=== PATIENT | female | born 1980 | race African-American/Black ===

== ENCOUNTER 2016-12-11 14:36 | Emergency (ER) | payer BC ==
[2016-12-11 18:39] LABS: BASOPHIL % 0.4 % (0-2); PLATELET COUNT 363 x10^3mcL (130-400); RED CELL DISTRIBUTION WIDTH 14.1 % (11.5-14.5)
[2016-12-11 19:03] VITALS: BP 119/79
[2016-12-11 19:08] LABS: CALCIUM 9.3 mg/dL (8.5-10.1); CARBON DIOXIDE 25.1 mmol/L (21-32); CHLORIDE SERUM 104 mmol/L (98-107); CREATININE SERUM 0.8 mg/dL (0.6-1.0); GFR1 > 60 mL/min; GLUCOSE SERUM 98 mg/dL (74-106); POTASSIUM SERUM 3.5 mmol/L (3.5-5.1); SODIUM SERUM 140 mmol/L (136-145)
[2016-12-11 19:10] LABS: microscopic required? YES; urine erythrocyte 3+ (NEGATIVE)
[2016-12-11 19:20] LABS: ALBUMIN 4.2 g/dL (3.4-5.0); ALKALINE PHOSPHATASE 84 U/L (46-116); ALT/SGPT 22 U/L (14-59); AST/SGOT 16 U/L (15-37); BILIRUBIN TOTAL 0.5 mg/dL (0.20-1.00); HDL CHOLESTEROL 51 mg/dL (40-60); MAGNESIUM 2.1 mg/dL (1.8-2.4)
[2016-12-11 19:21] LABS: CHOLESTEROL 218 mg/dL (<200); TOTAL PROTEIN, SERUM 9.2 g/dL (6.4-8.2)
[2016-12-11 19:27] LABS: AMPHETAMINE QUAL UR NONE DETECTED (NEG <=1000)
== END 2016-12-11 19:52 | disposition home or self-care (01) ==
LOC: ED 14:36
PROVIDERS: Emergency Medicine
DX: I10 Essential (primary) hypertension (principal); R07.89 Other chest pain; E78.00 Pure hypercholesterolemia, unspecified; Z79.899 Other long term (current) drug therapy
CPT/HCPCS: 80307; 82962; 83880; J3490